=== PATIENT | female | born 1940 | race Caucasian/White ===

== ENCOUNTER 2019-01-14 15:25 | Observation (INO) | payer MEDICARE ==
--- NOTE | 2019-01-14 15:42 | Emergency Department Record ---
History of Present Illness - General Chief Complaint: Palpitations Stated Complaint: HEART SKIPPING A BEAT Time Seen by Provider: 01/14/19 15:30 Source: Patient Mode of Arrival: Ambulatory Limitations: No limitations - History of Present Illness Initial Comments: 78 yo female presents from the [facility] is irregular heart rate sensation. The onset was last night of not feeling well. She feels off, tired, and lightheaded at times. She was seen at the [place] walk in [facility] and found to have a number of APC's and hypertensive. No chest pain. No shortness of breath. At times she is light headed but no syncope. A few times in the last month she has had episodes of very fast heart rate that will last 3- minutes then stop. No history of CAD or arrhythmia. No edema. No recent illness. No changes in medications. MD Complaint: Irregular heart beat, Palpitations -: Days(s) Context: Occurred during rest Arrythmia History: Other Associated Symptoms: Denies other symptoms - Related Data Allergies Allergy/AdvReac Type Severity Reaction Status Date / Time No Known Drug Allergies Allergy Verified 01/14/19 15:38 Travel Screening - Travel/Exposure Within Last 30 Days Have you traveled within the last 30 days?: No Review of Systems Constitutional: Denies: Chills, Fever, Malaise, Weakness Eyes: Denies: Eye discharge, Eye pain, Vision change ENT: Denies: Congestion, Throat pain Respiratory: Denies: Cough, Dyspnea, Hemoptysis, Stridor, Wheezes Cardiovascular: Reports: As per HPI, Palpitations Endocrine: Denies: Fatigue, Polydipsia, Polyuria Gastrointestinal: Denies: Abdominal pain, Diarrhea, Nausea, Vomiting Genitourinary: Denies: Dysuria, Urgency Musculoskeletal: Denies: Arthralgia, Back pain, Myalgia Skin: Denies: Bruising, Change in color, Rash Neurological: Denies: Headache, Numbness, Weakness Psychiatric: Denies: Anxiety Hematological/Lymphatic: Denies: Easy bleeding, Easy bruising Past Medical History - SOCIAL HISTORY Smoking Status: Never smoker Alcohol Use: None Drug Use: None - RESPIRATORY Hx Respiratory Disorders: No - CARDIOVASCULAR Hx Cardio Disorders: Yes Hx Hypertension: Yes - NEURO Hx Neuro Disorders: No - GI Hx GI Disorders: No - Hx Genitourinary Disorders: No - ENDOCRINE Hx Endocrine Disorders: No - MUSCULOSKELETAL Hx Musculoskeletal Disorders: No - PSYCH Hx Psych Problems: No - HEMATOLOGY/ONCOLOGY Hx Hematology/Oncology Disorders: No Family Medical History Any Significant Family History?: Yes Hx Cancer: Brother/Sister Hx Heart Disease: Father, Mother Physical Exam - General General Appearance: Alert, Oriented x3, Cooperative, No acute distress Limitations: No limitations - Head Head exam: Atraumatic, Normocephalic, Normal inspection - Eye Eye exam: Normal appearance, PERRL. negative: Conjunctival injection, Scleral icterus - ENT ENT exam: Normal exam, Mucous membranes moist Ear exam: Normal external inspection Nasal Exam: Normal inspection Mouth exam: Normal external inspection - Neck Neck exam: Normal inspection - Respiratory Respiratory exam: Normal lung sounds bilaterally. negative: Accessory muscle use, Decreased breath sounds, Prolonged expiratory, Respiratory distress, Rhonchi, Stridor, Wheezes - Cardiovascular Cardiovascular Exam: Regular rate, Irregular rhythm. negative: Normal rhythm, Diastolic murmur, Systolic murmur Peripheral Pulses: 2+: Radial (R), Radial (L) - GI/Abdominal GI/Abdominal exam: Soft. negative: Tenderness - Rectal Rectal exam: Deferred - exam: Deferred - Extremities Extremities exam: negative: Calf tenderness, Pedal edema, Tenderness - Back Back exam: Denies: CVA tenderness (R), CVA tenderness (L) - Neurological Neurological exam: Alert, Oriented X3 - Psychiatric Psychiatric exam: Normal affect, Normal mood. negative: Agitated, Anxious - Skin Skin exam: Dry, Intact, Normal color, Warm Course Vital Signs 01/14/19 15:30 Temperature 98.7 F Pulse Rate 85 Respiratory 18 Rate Blood Pressure 193/110 Pulse Ox 95 - Reevaluation(s) Reevaluation #1: 01/14/19 15:41 EKG #1: 15:28 Rate: 67 Rhythm: sinus with PAC's [place]: Left Intervals: Normal ST segments: No acute abnormality Prior: 01/14/19 16:17 The labs were reviewed K is 3.3 Otherwise no acute abnormalities on the CBC or CMP The Troponin is normal range 01/14/19 16:18 TSH is normal 01/14/19 16:38 The case was discussed with Lennie Bob NP. Given she is symptomatic the plan is to observe on the monitor, ECHO tomorrow and replace electrolytes Medical Decision Making - Lab Data Result diagrams: 01/14/19 15:42 01/15/19 06:20 Disposition Disposition: Admit Clinical Impression: Palpitations, Premature atrial complexes, Hypokalemia Disposition: Still a Patient at [facility] Decision to Admit: Admit from ER Decision to Admit Date: 01/14/19 Decision to Admit Time: 16:39 Condition: (2) Stable Time of Disposition: 16:40 Quality - Quality Measures Quality Measures: N/A - Blood Pressure Screening Does Patient Have Any of the Following: Active Dx of HTN Blood Pressure Classification: Hypertensive Reading Systolic Measurement: 193 Diastolic Measurement: 110 Screening for High Blood Pressure: Patient Exclusion, Hx of HTN [G9744]
[2019-01-14 15:49] LABS: ABSOLUTE NEUTROPHIL COUNT 3.93; BASO % 0.3 % (0-6); EOS % 3.5 % (0-6); GRAN % 50.2 % (47-80); HEMATOCRIT 50.4 % (35.0-47.0); HEMOGLOBIN 16.5 gm/dl (11.6-16.0); MEAN CORPUSCULAR HEMOGLOBIN 30.4 pg (27-33); MEAN CORPUSCULAR HGB CONC 32.7 g/dl (32-36); MEAN PLATELET VOLUME 10.5 fl (7.4-10.4); PLATELET COUNT 258 K/uL (130-400); RED BLOOD COUNT 5.42 M/uL (3.80-5.40); RED CELL DISTRIBUTION WIDTH 13.3 % (11.5-14.5); WHITE BLOOD COUNT W/O DIFF 7.8 K/uL (4.2-12.2)
[2019-01-14 15:59] LABS: BLOOD UREA NITROGEN 14 mg/dL (8-23); CREATININE 0.7 mg/dL (0.5-0.9); EST GLOMERULAR FILTRATION RATE > 60 mL/min
[2019-01-14 16:00] LABS: TOTAL PROTEIN 7.5 g/dL (6.6-8.7)
[2019-01-14 16:02] LABS: GLUCOSE,RANDOM 129 mg/dL (74-109)
[2019-01-14 16:04] LABS: ALT/SGPT 17 U/L (<33)
[2019-01-14 16:05] LABS: ALB/GLOB RATIO 1.7 (1.1-1.8); ALBUMIN 4.7 g/dL (4.0-5.0); ALKALINE PHOSPHATASE 112 U/L (35-104); AST/SGOT 19 U/L (10.0-35.0)
[2019-01-14 16:16] LABS: THYROID STIMULATING HORMONE 3.18 uIU/mL (0.270-4.20)
[2019-01-14] MEDS ORDERED: POTASSIUM CHLORIDE 20 MEQ TABLET PO ONE (16:16)
--- NOTE | 2019-01-14 16:48 | RADIOLOGY REPORT ---
EXAMINATION: Two View Chest Radiographs EXAM DATE: 01/14/2019 4:25 PM TECHNIQUE: Frontal and lateral views INDICATION: palpitations COMPARISON: 06/14/2016 ENCOUNTER: Not applicable FINDINGS: Mild cardiomegaly. No vascular congestion. Clear lungs. No pneumothorax or pleural effusion. IMPRESSION: Mild cardiomegaly without acute cardiopulmonary disease. Dictated by: Kojo Yo MD on 01/14/2019 4:44 PM. .
[2019-01-14] MEDS ORDERED: POTASSIUM CHLORIDE 20 MEQ TABLET PO SCH (17:44)
[2019-01-14] MEDS ORDERED: ASPIRIN 81 MG TABEC PO SCH ×2 (17:44→22:00)
[2019-01-14] MEDS ORDERED: HYDROCHLOROTHIAZIDE 12.5 MG CAPSULE PO SCH (17:44)
[2019-01-14] MEDS ORDERED: FELODIPINE 5 MG PO SCH (17:44)
[2019-01-14] MEDS ORDERED: FLU VAC QS 2019-20 (INPT, 6MO+) 60MCG/0.5ML IM ONE (18:08)
[2019-01-14] MEDS: POTASSIUM CHL 20MEQ IN 1L NS 20 MEQ/1,000 ML BAG IV SCH (18:32)
[2019-01-14] MEDS ORDERED: PRAVASTATIN 40 MG PO SCH (22:00)
[2019-01-14] MEDS ORDERED: SIMVASTATIN 20 MG TABLET PO SCH (22:00)
[2019-01-15] MEDS: POTASSIUM CHL 20MEQ IN 1L NS 20 MEQ/1,000 ML BAG IV SCH ×2 (04:07→14:09)
[2019-01-15 06:51] LABS: BLOOD UREA NITROGEN 13 mg/dL (8-23); CREATININE 0.7 mg/dL (0.5-0.9); EST GLOMERULAR FILTRATION RATE > 60 mL/min; GLUCOSE,RANDOM 126 mg/dL (74-109)
--- NOTE | 2019-01-15 08:48 | History & Physical ---
History of Present Illness - Date of Service Date of Service for History & Physical: 01/15/19 - History of Present Illness Admitting Diagnosis: palpitations, hypokalemia History of Present Illness: Mrs Iyer is a 78 yo female with complaint of l" feeling off" lightheaded and having palpitations. The patient says that she tried to get into her PCP but was unable to do so and she went to the [place] clinic. There she had an ECG done which showed that she some PACs and she was hypertensive. The patient was referred to [facility] ED and on admission the ECG did show sinus rhythm and PACs but no acute findings. She has no history of CAD, arrhythmias or family history of heart disease. She has no history of alcohol or tobacco use. Troponins negative x 2, ECG: NSR with PACS, CXR: no acute cardiopulmonary findings. The patient was admitted to the medical floor for observation and to have cardiac echo done. On rounds this morning the patient is awake, alert and oriented and has no complaint. PCP: Dr. George Smart. Travel Screening - Travel/Exposure Within Last 30 Days Have you traveled within the last 30 days?: No - Travel/Exposure Within Last Year Have you traveled outside the [place] in the last year?: No - Additonal Travel Details Have you been exposed to anyone with a communicable illness?: No Review of Systems Constitutional: Denies: Chills, Fever, Malaise, Weakness Eyes: Denies: Eye discharge, Eye pain, Vision change ENT: Denies: Congestion, Throat pain Respiratory: Denies: Cough, Dyspnea, Hemoptysis, Stridor, Wheezes Cardiovascular: Reports: As per HPI, Palpitations Endocrine: Denies: Fatigue, Polydipsia, Polyuria Gastrointestinal: Denies: Abdominal pain, Diarrhea, Nausea, Vomiting Genitourinary: Denies: Dysuria, Urgency Musculoskeletal: Denies: Arthralgia, Back pain, Myalgia Skin: Denies: Bruising, Change in color, Rash Neurological: Denies: Headache, Numbness, Weakness Psychiatric: Denies: Anxiety Hematological/Lymphatic: Denies: Easy bleeding, Easy bruising Past Medical History - SOCIAL HISTORY Smoking Status: Never smoker Alcohol Use: None Drug Use: None - RESPIRATORY Hx Respiratory Disorders: No - CARDIOVASCULAR Hx Cardio Disorders: Yes Hx Hypertension: Yes - NEURO Hx Neuro Disorders: No - GI Hx GI Disorders: No - Hx Genitourinary Disorders: No - ENDOCRINE Hx Endocrine Disorders: No - MUSCULOSKELETAL Hx Musculoskeletal Disorders: No - PSYCH Hx Psych Problems: No - HEMATOLOGY/ONCOLOGY Hx Hematology/Oncology Disorders: No Family Medical History Any Significant Family History?: Yes Hx Cancer: Brother/Sister Hx Heart Disease: Father, Mother H&P Meds/Allergies - Allergies Allergies: Allergies Allergy/AdvReac Type Severity Reaction Status Date / Time No Known Drug Allergies Allergy Verified 01/14/19 15:38 - Active Medications Active Medications: Current Medications Hydralazine HCl (Apresoline) 10 mg PO QID [facility] Potassium Chloride/Sodium Chloride ( Potassium Chl 20meq/) 20 meq in 1,000 mls @ 100 mls/hr IV Q10H [facility] Last Admin: 01/15/19 04:07 Dose: 100 mls/hr Documented by: Non-Formulary Medication (Felodipine [Felodipine Er]) 5 mg PO DAILY [facility] Hydrochlorothiazide (25mg) 1 each PO DAILY [facility] Potassium 20 Meq 1 each PO DAILY [facility] Patient Own Med: (Pravastatin 40mg) 1 each PO QHS [facility] Last Admin: 01/14/19 21:30 Dose: 1 each Documented by: Aspirin 81mg Ec 1 each PO QHS [facility] Physical Exam - Vital Signs Vital Signs: Vital Signs - Last 24 Hrs Temp Pulse Pulse Pulse Resp BP BP 01/15/19 08:00 98.8 F 52 L 22 01/15/19 04:00 98.5 F 53 L 16 145/66 01/15/19 00:25 98.6 F 57 L 18 163/64 01/14/19 19:47 98.7 F 58 L 16 141/72 01/14/19 17:50 98.4 F 74 16 152/96 01/14/19 17:39 77 18 186/101 01/14/19 16:48 77 18 169/96 01/14/19 15:30 98.7 F 85 18 193/110 BP Pulse Ox 01/15/19 08:00 170/75 97 01/15/19 04:00 99 01/15/19 00:25 96 01/14/19 19:47 100 01/14/19 17:50 95 01/14/19 17:39 96 01/14/19 16:48 95 01/14/19 15:30 95 - General General Appearance: Alert, Oriented x3, Cooperative, No acute distress Limitations: No limitations - Head Head exam: Atraumatic, Normocephalic, Normal inspection - Eye Eye exam: Normal appearance, PERRL. negative: Conjunctival injection, Scleral icterus - ENT ENT exam: Normal exam, Mucous membranes moist Ear exam: Normal external inspection Nasal Exam: Normal inspection Mouth exam: Normal external inspection - Neck Neck exam: Normal inspection - Respiratory Respiratory exam: Normal lung sounds bilaterally. negative: Accessory muscle us e, Decreased breath sounds, Prolonged expiratory, Respiratory distress, Rhonchi, Stridor, Wheezes - Cardiovascular Cardiovascular Exam: Regular rate, Irregular rhythm. negative: Normal rhythm, Diastolic murmur, Systolic murmur Peripheral Pulses: 2+: Radial (R), Radial (L) - GI/Abdominal GI/Abdominal exam: Soft. negative: Tenderness - Rectal Rectal exam: Deferred - exam: Deferred - Extremities Extremities exam: negative: Calf tenderness, Pedal edema, Tenderness - Back Back exam: Denies: CVA tenderness (R), CVA tenderness (L) - Neurological Neurological exam: Alert, Oriented X3 - Psychiatric Psychiatric exam: Normal affect, Normal mood. negative: Agitated, Anxious - Skin Skin exam: Dry, Intact, Normal color, Warm Results - Labs Result Diagrams: 01/14/19 15:42 01/15/19 06:20 Labs Last 24 Hours: Laboratory Results - last 24 hr 01/14/19 01/14/19 01/14/19 15:42 15:42 22:10 WBC 7.8 RBC 5.42 H Hgb 16.5 H Hct 50.4 H MCV 93.0 MCH 30.4 MCHC 32.7 RDW 13.3 Plt Count 258 MPV 10.5 H Gran % 50.2 Lymphocytes % 34.0 Monocytes % 12.0 H Eosinophils % 3.5 Basophils % 0.3 Absolute Neutrophils 3.93 Sodium 138 Potassium 3.3 L Chloride 99 Carbon Dioxide 26.0 Anion Gap 13.0 BUN 14 Creatinine 0.7 Estimated GFR > 60 Random Glucose 129 H Calcium 9.9 Total Bilirubin 0.50 AST 19 ALT 17 Alkaline Phosphatase 112 H Troponin T < 0.010 < 0.010 Total Protein 7.5 Albumin 4.7 Globulin 2.8 Albumin/Globulin Ratio 1.7 TSH 3.18 01/15/19 06:20 WBC RBC Hgb Hct MCV MCH MCHC RDW Plt Count MPV Gran % Lymphocytes % Monocytes % Eosinophils % Basophils % Absolute Neutrophils Sodium 142 Potassium 3.7 Chloride 106 Carbon Dioxide 27.0 Anion Gap 9.0 BUN 13 Creatinine 0.7 Estimated GFR > 60 Random Glucose 126 H Calcium 8.9 Total Bilirubin AST ALT Alkaline Phosphatase Troponin T < 0.010 Total Protein Albumin Globulin Albumin/Globulin Ratio TSH VTE H&P Assessment - Risk for VTE Risk for VTE: Yes Risk Level: Moderate Risk Assessment Date: 01/15/19 Risk Assessment Time: 15:51 VTE Orders Placed or Will Be Placed: Yes Plan - Detailed Diagnosis and Plan (1) Palpitations Current Visit: Yes Status: Acute Base Code: R00.2 - PALPITATIONS Comment: 01/15/19: - Resolved. TSH, Mg within normal limits. - ECG showing NSR with PACs but no acute findings. - Telemetry: No acute arrhythmias noted. (2) Premature atrial complexes Current Visit: Yes Status: Acute Base Code: I49.1 - ATRIAL PREMATURE DEPOLARIZATION Comment: 01/15/19: - ECG: NSR with PACs no acute ST- T changes. Trops neg x 2, TSH, Mg WNL. - 2D echo sowing grade I diastolic dsfx w/ preserved EF 55-60% - If persistent and symptomatic then may need Holter for further workup. (3) Hypokalemia Current Visit: Yes Status: Acute Base Code: E87.6 - HYPOKALEMIA Comment: 01/15/19: - 3.3--> 3.7 with K supplementation. - Continue with K 20meq at home (4) HTN (hypertension) Current Visit: Yes Status: Acute Base Code: I10 - ESSENTIAL (PRIMARY) HYPERTENSION Comment: 01/15/19: - Improvedwith resumption of home doses of Felodipine 5mg and HCTZ 12.5mg daily. Hydralazine 10mg PO QID added. - May require third agent if not controlled upon discharge. (5) DVT prophylaxis Current Visit: Yes Status: Acute Base Code: Z29.9 - ENCOUNTER FOR PROPHYLACTIC MEASURES, UNSPECIFIED Comment: 01/15/19: - Lovenox 40mg sq qd (6) Full code status Current Visit: Yes Status: Acute Base Code: Z78.9 - OTHER SPECIFIED HEALTH STATUS Comment: 01/15/19: - The patient is full code.
[2019-01-15] MEDS ORDERED: POTASSIUM 20 MEQ PO SCH (10:00)
[2019-01-15] MEDS ORDERED: HYDROCHLOROTHIAZIDE 25MG PO SCH (10:00)
[2019-01-15] MEDS ORDERED: FELODIPINE 5 MG PO SCH (10:00)
[2019-01-15] MEDS: HYDRALAZINE HCL 10 MG TABLET PO SCH ×2 (10:32→14:10)
[2019-01-15] MEDS ORDERED: POTASSIUM CHLORIDE 20 MEQ TABLET PO ONE (10:37)
--- NOTE | 2019-01-15 15:36 | Discharge Summary ---
Providers Discharge Summary Date: 01/15/19 Date of admission: 01/14/19 17:33 Attending physician: FERNIE ERICKSON Primary care physician: GEORGE SMART D.O. Physical Exam - Vital Signs Vital Signs: Vital Signs - Last 24 Hrs Temp Pulse Pulse Resp BP BP Pulse Ox 01/15/19 12:00 98.2 F 66 20 135/66 94 L 01/15/19 09:00 22 01/15/19 08:00 98.8 F 52 L 22 170/75 97 01/15/19 04:00 98.5 F 53 L 16 145/66 99 01/15/19 00:25 98.6 F 57 L 18 163/64 96 01/14/19 19:47 98.7 F 58 L 16 141/72 100 01/14/19 17:50 98.4 F 74 16 152/96 95 01/14/19 17:39 77 18 186/101 96 01/14/19 16:48 77 18 169/96 95 - General General Appearance: Alert, Oriented x3, Cooperative, No acute distress Limitations: No limitations - Head Head exam: Atraumatic, Normocephalic, Normal inspection - Eye Eye exam: Normal appearance, PERRL. negative: Conjunctival injection, Scleral icterus - ENT ENT exam: Normal exam, Mucous membranes moist Ear exam: Normal external inspection Nasal Exam: Normal inspection Mouth exam: Normal external inspection - Neck Neck exam: Normal inspection - Respiratory Respiratory exam: Normal lung sounds bilaterally. negative: Accessory muscle use, Decreased breath sounds, Prolonged expiratory, Respiratory distress, Rhonchi, Stridor, Wheezes - Cardiovascular Cardiovascular Exam: Regular rate, Irregular rhythm. negative: Normal rhythm, Diastolic murmur, Systolic murmur Peripheral Pulses: 2+: Radial (R), Radial (L) - GI/Abdominal GI/Abdominal exam: Soft. negative: Tenderness - Rectal Rectal exam: Deferred - exam: Deferred - Extremities Extremities exam: negative: Calf tenderness, Pedal edema, Tenderness - Back Back exam: Denies: CVA tenderness (R), CVA tenderness (L) - Neurological Neurological exam: Alert, Oriented X3 - Psychiatric Psychiatric exam: Normal affect, Normal mood. negative: Agitated, Anxious - Skin Skin exam: Dry, Intact, Normal color, Warm Hospitalization - Hospitalization Admission Diagnosis: palpitations, hypokalemia - Problem List/Discharge Diagnosis (1) DVT prophylaxis Current Visit: Yes Status: Acute Base Code: Z29.9 - ENCOUNTER FOR PROPHYLACTIC MEASURES, UNSPECIFIED Comment: 01/15/19: - Lovenox 40mg sq qd (2) Full code status Current Visit: Yes Status: Acute Base Code: Z78.9 - OTHER SPECIFIED HEALTH STATUS Comment: 01/15/19: - The patient is full code. (3) Hypokalemia Current Visit: Yes Status: Acute Base Code: E87.6 - HYPOKALEMIA Comment: 01/15/19: - 3.3--> 3.7 with K supplementation. - Continue with K 20meq at home (4) Palpitations Current Visit: Yes Status: Acute Base Code: R00.2 - PALPITATIONS Comment: 01/15/19: - Resolved. TSH, Mg within normal limits. - ECG showing NSR with PACs but no acute findings. - Telemetry: No acute arrhythmias noted. (5) Premature atrial complexes Current Visit: Yes Status: Acute Base Code: I49.1 - ATRIAL PREMATURE DEPOLARIZATION Comment: 01/15/19: - ECG: NSR with PACs no acute ST- T changes. Trops neg x 2, TSH, Mg WNL. - 2D echo sowing grade I diastolic dsfx w/ preserved EF 55-60% - If persistent and symptomatic then may need Holter for further workup. - Hospitalization Course Hospital Course: Mrs Iyer is a 78 yo female with complaint of l" feeling off" lightheaded and having palpitations. The patient says that she tried to get into her PCP but was unable to do so and she went to the [place] clinic. There she had an ECG done which showed that she some PACs and she was hypertensive. The patient was referred to [facility] ED and on admission the ECG did show sinus rhythm and PACs but no acute findings. She has no history of CAD, arrhythmias or family history of heart disease. She has no history of alcohol or tobacco use. Troponins negative x 2, ECG: NSR with PACS, CXR: no acute cardiopulmonary findings. The patient was admitted to the medical floor for observation and to have cardiac echo done. On rounds this morning the patient is awake, alert and oriented and has no complaint. Reviewed patient's echo shows diastolic dysfunction, grade I. The patient can be discharged to follow up with her PCP for optimal blood pressure control. PCP: Dr. George Smart. Procedures: Imaging and X-Rays 01/14/19 15:50 CHEST 2 VIEWS [RAD] Stat Cardiology Procedures 01/14/19 15:30 [employer]ch[employer]ise [employer] NOW EKG NOW 01/14/19 17:44 Merchandise Presentation Associate .Continuous EKG [id number]@0600 Echo W/CF & Cardiac Doppler NOW Abnormal Labs: Abnormal Lab Results 01/14/19 01/14/19 01/15/19 Range/Units 15:42 15:42 06:20 RBC 5.42 H (3.80-5.40) M/uL Hgb 16.5 H (11.6-16.0) gm/dl Hct 50.4 H (35.0-47.0) % MPV 10.5 H (7.4-10.4) fl Monocytes % 12.0 H (0-9) % Potassium 3.3 L (3.4-4.5) mmol/L Random Glucose 129 H 126 H (74-109) mg/dL Alkaline Phosphatase 112 H (35-104) U/L Condition at Discharge: (2) Stable Discharge Medications - Discharge Medications Home Medications: Ambulatory Orders Aspirin [Aspir 81] 81 mg PO QHS tab 03/18/15 [Last Taken 01/13/19] Cholecalciferol (Vitamin D3) [Vitamin D3] 400 unit PO DAILY cap 03/18/15 [Last Taken 01/14/19] Hydrochlorothiazide [Hctz] 25 mg PO DAILY cap 03/18/15 [Last Taken 01/14/19] Pravastatin Sodium 40 mg PO QHS tab 03/18/15 [Last Taken 01/13/19] Ubidecarenone [Coenzyme Q10] 100 mg PO DAILY tab 03/18/15 [Last Taken 01/14/19] Felodipine [Felodipine ER] 5 mg PO DAILY tab 11/20/18 [Last Taken 01/14/19] Potassium Chloride 20 meq PO DAILY tab 11/20/18 [Last Taken 01/14/19] Discharge Plan - Discharge Instructions Activity at Discharge: Increase Activity as Tolerated Diet at Discharge: Low Fat, Low Cholesterol, Low Salt Diet Instructions: Heart Palpitations (DC), Hypokalemia (DC) Additional Instructions: Activity: increase activity as tolerated Diet: as tolerated Consults: Follow Up: Appointment with Dr. Smart January 23 at 11:00am. ([phone]) Additional: Continue home medications as directed Take Potassium supplements as directed Quality Measures - Quality Measures Quality Measures: Advance Directives, Documentation of Current Medications in Medical Record, Elder Maltreatment Screen and Follow-Up Plan, Screening for High Blood Pressure and F/U Documented - Current Medications Quality Measure: Measure #130: Documentation of Current Medications Documentation of Current Medications: <Current Medications Documented/Reviewed> [Z8480] - Blood Pressure Screening Quality Measure: Screening for High Blood Pressure and Follow-Up Documented Does Patient Have Any of the Following: Active Dx of HTN Blood Pressure Classification: Hypertensive Reading Systolic Measurement: 193 Diastolic Measurement: 110 Screening for High Blood Pressure: Patient Exclusion, Hx of HTN [G9744] - Advance Directives Quality Measure: Measure #47: Care Plan Advance Directives Established: No Advance Directives Information Provided To Patient: Declined Advance Directives on File: No Advance Care Planning: <Care Plan/Decision Maker Not Decided; Discussed & Documented> [8230F] - Elder Abuse Suspicion Index Screening: Elder Abuse Suspicion Index Screening Rely on people for bathing, dressing, shopping, banking, etc: No Prevented from getting food, clothes, medication, etc: No Made to feel shamed or threatened by someone: No Forced to sign papers or use money against will: No Feel afraid, touched in ways not wanted or hurt physically: No Poor eye contact, withdrawn, malnourished, cuts or bruises: No Screening Result: Negative result EASI Reference Information: Latasha ISRAEL, To C, Wale D, Charles Man.Development and validation of a tool to assist physicians identification of elder abuse: The Elder Abuse Suspicion Index (EASI ). Journal of Elder Abuse and Neglect, 2008; 20 (3): 276-300. - Elder Maltreatment Screen Quality Measures: Elder Maltreatment Screen and Follow-Up Plan Elder Maltreatment Screen: <Negative, No Follow-Up Plan Required> [G8734]
[2019-01-15] MEDS ORDERED: ASPIRIN 81 MG PO SCH (22:00)
== END 2019-01-15 15:45 | disposition home or self-care (01) ==
LOC: ER 15:25 → MEDSURG 17:33
PROVIDERS: ADMIT Internal Medicine; ATTEND Internal Medicine
DX: R00.2 Palpitations (principal); I49.1 Atrial premature depolarization; E87.6 Hypokalemia; I10 Essential (primary) hypertension; E78.00 Pure hypercholesterolemia, unspecified; Z29.9 Encounter for prophylactic measures, unspecified
CPT/HCPCS: 83735; 85025; 80048; 80053; 84443; 84484 ×2; 71046; 93005 ×2; 93010; 93306; 90686; G0378 ×2; 96365; 99220; 99285